=== PATIENT | male | born 1960 | race Caucasian/White ===

== ENCOUNTER → 2019-10-16 09:37 | Outpatient (BNVA) | payer MEDICARE, SELFPAY | PROVIDERS: Family Provider Family Medicine; PCP Family Medicine; Visit Provider Family Medicine | DX: E11.9 Type 2 diabetes mellitus without complications (principal); M54.9 Dorsalgia, unspecified; E78.5 Hyperlipidemia, unspecified; I10 Essential (primary) hypertension; M54.40 Lumbago with sciatica, unspecified side; Z79.4 Long term (current) use of insulin; G89.29 Other chronic pain | CPT/HCPCS: 80053; 80061; 83036 ==

== ENCOUNTER → 2020-01-23 11:02 | Outpatient (BNVA) | payer MEDICARE, SELFPAY | PROVIDERS: Family Provider Family Medicine; PCP Family Medicine; Visit Provider Family Medicine | DX: E11.9 Type 2 diabetes mellitus without complications (principal); M54.9 Dorsalgia, unspecified; E78.5 Hyperlipidemia, unspecified; I10 Essential (primary) hypertension; M54.40 Lumbago with sciatica, unspecified side; Z79.4 Long term (current) use of insulin; G89.29 Other chronic pain; R74.8 Abnormal levels of other serum enzymes; M89.8X1 Other specified disorders of bone, shoulder; M75.81 Other shoulder lesions, right shoulder | CPT/HCPCS: 80048; 83036 ==

== ENCOUNTER → 2020-04-22 11:04 | Outpatient (BNVA) | payer MEDICARE, SELFPAY | PROVIDERS: Family Provider Family Medicine; PCP Family Medicine; Visit Provider Family Medicine | DX: E11.9 Type 2 diabetes mellitus without complications (principal); I10 Essential (primary) hypertension; M89.8X1 Other specified disorders of bone, shoulder; M75.81 Other shoulder lesions, right shoulder; Z79.4 Long term (current) use of insulin; M54.42 Lumbago with sciatica, left side; M54.41 Lumbago with sciatica, right side; G89.29 Other chronic pain; N18.2 Chronic kidney disease, stage 2 (mild) | CPT/HCPCS: 80048; 83036 ==

== ENCOUNTER → 2020-07-23 00:01 | Outpatient (BNVA) | payer MEDICARE, SELFPAY | PROVIDERS: Family Provider Family Medicine; PCP Family Medicine; Visit Provider Family Medicine | DX: E11.9 Type 2 diabetes mellitus without complications (principal); E78.5 Hyperlipidemia, unspecified; M75.81 Other shoulder lesions, right shoulder; M89.8X1 Other specified disorders of bone, shoulder; I10 Essential (primary) hypertension; M54.40 Lumbago with sciatica, unspecified side; N18.2 Chronic kidney disease, stage 2 (mild); Z79.4 Long term (current) use of insulin; M54.42 Lumbago with sciatica, left side; M54.41 Lumbago with sciatica, right side; G89.29 Other chronic pain | CPT/HCPCS: 80048; 83036 ==

== ENCOUNTER → 2020-10-22 10:55 | Outpatient (BNVA) | payer MEDICARE, SELFPAY | PROVIDERS: Family Provider Family Medicine; PCP Family Medicine; Visit Provider Family Medicine | DX: E11.9 Type 2 diabetes mellitus without complications (principal); I10 Essential (primary) hypertension; E78.5 Hyperlipidemia, unspecified; N18.2 Chronic kidney disease, stage 2 (mild); Z72.0 Tobacco use; Z79.4 Long term (current) use of insulin | CPT/HCPCS: 80053; 80061; 83036 ==

== ENCOUNTER → 2021-02-11 09:40 | Outpatient (BNVA) | payer MEDICARE, SELFPAY | PROVIDERS: Family Provider Family Medicine; PCP Family Medicine; Visit Provider Family Medicine | DX: E11.9 Type 2 diabetes mellitus without complications (principal); Z79.4 Long term (current) use of insulin; I10 Essential (primary) hypertension; E78.5 Hyperlipidemia, unspecified; G89.29 Other chronic pain | CPT/HCPCS: 83036 ==

== ENCOUNTER 2021-04-14 13:45 | Emergency (ER) | payer OTHER, MEDICARE, SELFPAY ==
[2021-04-14 14:36] VITALS: BP 130/81; PULSE 93; RESP 16; TEMP 37; O2SAT 96; BMI 34.4
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
--- NOTE | 2021-04-15 09:14 | DCPLANNER ---
restaurant manager had message to schedule a follow up appointment with ortho for patient. restaurant manager called the ortho clinic, spoke with Helen, gave clinic patients information. restaurant manager was told that patients information would be printed and reviewed. Clinic will call patient with appointment information.
--- NOTE | 2021-04-16 11:25 | DCPLANNER ---
Patient has a follow up appointment scheduled for , April 17, 2021 at 11:00 with NIDHI Ngo. Clinic will call patient with appointment information.
--- NOTE | 2021-07-06 16:34 | DCPLANNER ---
Patient had a follow up appointment scheduled with ortho - patient did attend appointment.
== END 2021-04-14 18:52 | disposition home or self-care (01) ==
PROVIDERS: Emergency Provider Physician Assistant; PCP Family Medicine
DX: S62.366A Nondisplaced fracture of neck of fifth metacarpal bone, right hand, initial encounter for closed fracture (principal); E11.9 Type 2 diabetes mellitus without complications; N18.9 Chronic kidney disease, unspecified
CPT/HCPCS: 73130; 99282

== ENCOUNTER 2021-04-17 15:23 | Outpatient (CLI) | payer MEDICARE, SELFPAY | END 2021-04-17 15:24 | disposition home or self-care (01) | LOC: SPT 15:24 | PROVIDERS: PCP Family Medicine; Visit Provider Physician Assistant | DX: Z46.89 Encounter for fitting and adjustment of other specified devices (principal); S62.366A Nondisplaced fracture of neck of fifth metacarpal bone, right hand, initial encounter for closed fracture; X58.XXXA Exposure to other specified factors, initial encounter | CPT/HCPCS: 97760; L3984 ==

== ENCOUNTER → 2021-05-13 08:57 | Outpatient (BNVA) | payer MEDICARE, SELFPAY | PROVIDERS: PCP Family Medicine; Visit Provider Family Medicine | DX: E11.9 Type 2 diabetes mellitus without complications (principal); Z79.4 Long term (current) use of insulin; I10 Essential (primary) hypertension; E78.5 Hyperlipidemia, unspecified | CPT/HCPCS: 36416; 80053; 82962; 83036 ==

== ENCOUNTER → 2021-05-15 11:06 | Outpatient (BNVA) | payer OTHER, SELFPAY | PROVIDERS: PCP Family Medicine; Visit Provider Physician Assistant | DX: S62.366A Nondisplaced fracture of neck of fifth metacarpal bone, right hand, initial encounter for closed fracture (principal); X58.XXXA Exposure to other specified factors, initial encounter | CPT/HCPCS: 73120 ==

== ENCOUNTER → 2021-08-11 14:56 | Outpatient (BNVA) | payer MEDICARE, SELFPAY | PROVIDERS: PCP Family Medicine; Visit Provider Family Medicine | DX: E11.9 Type 2 diabetes mellitus without complications (principal); E78.5 Hyperlipidemia, unspecified; Z79.4 Long term (current) use of insulin; I10 Essential (primary) hypertension | CPT/HCPCS: 80053; 80061; 83036; 83721 ==

== ENCOUNTER 2022-02-15 11:14 | Emergency (ER) | payer MEDICARE, SELFPAY ==
[2022-02-15 11:46] VITALS: BP 133/86; PULSE 97; RESP 18; TEMP 36.6; O2SAT 96; BMI 33.6
--- NOTE | 2022-02-15 12:40 | PC.NURSE ---
Patient refused vitals
[2022-02-15 12:42] LABS: Basophils # 0.1 10^3/uL (0.0-0.1); Basophils % 0.3 %; Eosinophils # 0.1 10^3/uL (0.0-0.8); Eosinophils % 0.4 %; Hematocrit 43.8 % (42.0-52.0); Hemoglobin 14.3 g/dL (11.7-16.6); Lymphocytes # 2.4 10^3/uL (0.8-4.8); Lymphocytes % 11.5 %; Mean Corpuscular HGB Conc 32.6 g/dL (30.0-36.0); Mean Corpuscular Hemoglobin 30.9 pg (28.0-34.0); Mean Corpuscular Volume 94.6 fl (80-94); Mean Platelet Volume 10.7 fL (7.4-10.4); Monocytes # 1.8 10^3/uL (0.2-0.9); Monocytes % 8.8 %; Neutrophils # 16.37 10^3/uL (1.8-7.7); Neutrophils % 78.4 %; Nucleated Red Blood Cells % 0 %; Platelet Count 210 10^3/cmm (130-400); Red Blood Count 4.63 10^6/uL (4.1-5.3); Red Cell Distribution Width 12.3 % (12.1-15.1); White Blood Count 20.9 10^3/uL (4.0-10.0)
[2022-02-15 12:56] LABS: Erythrocyte Sedimentation Rate 6 mm/hr (0-10)
[2022-02-15 13:03] LABS: Alanine Aminotransferase 16 U/L (0-41); Albumin Level 4.4 g/dL (3.5-5.2); Alkaline Phosphatase 54 U/L (40-130); Anion Gap 15.4 (5-19); Aspartate Amino Transferase 12 U/L (0-40); Blood Urea Nitrogen 19 mg/dL (8-23); C Reactive Protein 62.6 mg/L (0.0-4.9); Calcium 9.7 mg/dL (8.5-10.5); Carbon Dioxide 26 mmol/L (22-29); Chloride 102 mmol/L (98-107); Globulin 2.4 g/dL (1.3-4.6); Glomerular Filtration Rate 51.2 mL/min (90-130); Glucose 157 mg/dL (65-115); Osmolality Calculated 294 mOsm/kg (285-295); Potassium 4.4 mmol/L (3.5-5.1); Sodium 139 mmol/L (136-145); Total Bilirubin 0.6 mg/dL (0.15-1.2); Total Protein 6.8 g/dL (6.6-8.7)
--- NOTE | 2022-02-15 14:36 | ED_ITS ---
HPI - Animal Bite General: Chief Complaint: Animal Bite Stated Complaint: Spider bite Time Seen by Provider: 02/15/22 14:35 History of Present Illness: 61-year-old gentleman with significant past medical history of diabetes who is up-to-date on tetanus who presents to the emergency department due to chest wall pain. He believes that he might of been bitten by a spider a few days ago however starting last night noticed increased burning pain and redness. Area is primarily located around a small black circular eschar. He does not recall specifically seeing the insect. There is some tenderness that radiates towards the shoulder. Has had chills but no other signs of systemic illness. Patient reports blood sugars in the 140s recently. No other specific changes in health, exacerbating, or alleviating factors identified. Onset (ago): day(s) Location: chest Pain description: constant Associated symptoms: Reports chills and erythema Review of Systems General: Reports: 10 or more systems reviewed and unremarkable except in HPI and below Const: Reports: chills PFSH ED PFSH: Medical History Chronic bilateral low back pain with sciatica Chronic pain of left wrist CKD (chronic kidney disease) Diabetes Dyslipidemia Enrolled in chronic care management Essential hypertension Tobacco use QUIT 2021 Surgical History H/O wrist surgery Total knee replacement status Family History Other Cancer Diabetes Epilepsy Heart disease Social History Smoking and tobacco status: former smoker Quit status (tobacco): has quit using tobacco Year quit tobacco: 04/2021 Alcohol intake: never Desire information about alcohol rehabilitation?: No Desire information about substance/drug rehabilitation?: No History of recent travel: No Current gender identity: Male Physical Exam Const: COMMON NORMALS: alert GENERAL APPEARANCE: cooperative and well developed HENMT: COMMON NORMALS: normocephalic and atraumatic HEAD & SCALP: normocephalic and atraumatic THROAT: posterior oropharynx normal Eye: COMMON NORMALS: conjunctivae normal CONJUNCTIVA: Yes conjunctivae normal SCLERA: sclerae normal Neck/C-Spine: COMMON NORMALS: supple GENERAL: Yes trachea midline Chest: OTHER: Erythema with foci just inferior and medial to the right nipple. Induration and tenderness palpation. Central area of black eschar which is approximately 3 mm in diameter. [id number] ultrasound performed with soft tissue induration without evidence of abscess or drainable fluid collection. Resp: COMMON NORMALS: normal respiratory effort EFFORT & INSPECTION: Yes able to speak in complete sentences Cardio: COMMON NORMALS: regular rate and regular rhythm RATE: regular rate RHYTHM: regular rhythm GI: COMMON NORMALS: Soft to palpation PALPATION: Yes Soft to palpation and No Tenderness to palpation present (GI) PERCUSSION: normal to percussion Extremity: GENERAL: Yes normal exam except as noted and No edema Neuro: COMMON NORMALS: moves all extremities SENSORIUM/ORIENTATION: Yes alert and No Orientation impaired Psych: COMMON NORMALS: mental status grossly normal and Normal thought process present THOUGHT PROCESS: Normal thought process present Skin: GENERAL SKIN EXAM: erythema Course Vital Signs: Vital signs: Vital Signs Temperature 98 F 02/15/22 11:46 Pulse Rate 88 02/15/22 15:29 Respiratory Rate 18 02/15/22 15:29 Blood Pressure 135/78 02/15/22 15:29 Pulse Oximetry 98 02/15/22 15:29 Oxygen Delivery Me thod 02/15/22 11:46 MDM - Animal Bite Medical Decision Making 61-year-old gentleman presenting with possible insect bite. Patient does have leukocytosis however is nontoxic in appearance. Labs otherwise similar to baseline. Satisfactory for outpatient management with antibiotics. Strict return precautions given. Medical Records I reviewed the patient's medical records. Lab Data I reviewed the patient's lab results. : 02/15/22 12:30 02/15/22 12:30 Laboratory Results WBC 20.9 10^3/uL (4.0-10.0) H 02/15/22 12:30 RBC 4.63 10^6/uL (4.1-5.3) 02/15/22 12:30 Hgb 14.3 g/dL (11.7-16.6) 02/15/22 12:30 Hct 43.8 % (42.0-52.0) 02/15/22 12:30 MCV 94.6 fl (80-94) H 02/15/22 12:30 MCH 30.9 pg (28.0-34.0) 02/15/22 12:30 MCHC 32.6 g/dL (30.0-36.0) 02/15/22 12:30 RDW 12.3 % (12.1-15.1) 02/15/22 12:30 Plt Count 210 10^3/cmm (130-400) 02/15/22 12:30 MPV 10.7 fL (7.4-10.4) H 02/15/22 12:30 Neut % (Auto) 78.4 % 02/15/22 12:30 Lymph % (Auto) 11.5 % 02/15/22 12:30 Grainger % (Auto) 8.8 % 02/15/22 12:30 Eos % (Auto) 0.4 % 02/15/22 12:30 Baso % (Auto) 0.3 % 02/15/22 12:30 Neut # (Auto) 16.37 10^3/uL (1.8-7.7) H 02/15/22 12:30 Lymph # (Auto) 2.4 10^3/uL (0.8-4.8) 02/15/22 12:30 Grainger # (Auto) 1.8 10^3/uL (0.2-0.9) H 02/15/22 12:30 Eos # (Auto) 0.1 10^3/uL (0.0-0.8) 02/15/22 12:30 Baso # (Auto) 0.1 10^3/uL (0.0-0.1) 02/15/22 12:30 Nucleated RBC % (auto) 0 % 02/15/22 12:30 Nucleated RBCs # 0.0 /100WBC 02/15/22 12:30 ESR 6 mm/hr (0-10) 02/15/22 12:30 Sodium 139 mmol/L (136-145) 02/15/22 12:30 Potassium 4.4 mmol/L (3.5-5.1) 02/15/22 12:30 Chloride 102 mmol/L (98-107) 02/15/22 12:30 Carbon Dioxide 26 mmol/L (22-29) 02/15/22 12:30 Anion Gap 15.4 (5-19) 02/15/22 12:30 BUN 19 mg/dL (8-23) 02/15/22 12:30 Creatinine 1.4 mg/dL (0.7-1.2) H 02/15/22 12:30 GFR Calculation 51.2 mL/min (90-130) L 02/15/22 12:30 Glucose 157 mg/dL (65-115) H 02/15/22 12:30 Calculated Osmolality 294 mOsm/kg (285-295) 02/15/22 12:30 Calcium 9.7 mg/dL (8.5-10.5) 02/15/22 12:30 Total Bilirubin 0.6 mg/dL (0.15-1.2) 02/15/22 12:30 AST 12 U/L (0-40) 02/15/22 12:30 ALT 16 U/L (0-41) 02/15/22 12:30 Alkaline Phosphatase 54 U/L (40-130) 02/15/22 12:30 C-Reactive Protein 62.6 mg/L (0.0-4.9) H 02/15/22 12:30 Total Protein 6.8 g/dL (6.6-8.7) 02/15/22 12:30 Albumin 4.4 g/dL (3.5-5.2) 02/15/22 12:30 Globulin 2.4 g/dL (1.3-4.6) 02/15/22 12:30 Discharge Plan Discharge Patient Disposition: Home Clinical Impression: Insect bite, Cellulitis Condition: Stable Prescriptions: New ondansetron 4 mg tablet,disintegrating 4 mg PO Q8H PRN (Reason: nausea and vomiting) Qty: 15 0RF No Action Lantus Solostar U-100 Insulin 100 unit/mL (3 mL) insulin pen 65 unit SUBCUT DAILY 30 Days Qty: 21 2RF tramadol 50 mg tablet 50 - 100 mg PO Q6H PRN omega-3 fatty acids [Fish Oil Concentrate] 1,000 mg capsule 1,000 mg PO BID 90 Days Qty: 180 3RF meloxicam 7.5 mg tablet See Rx Instructions .ROUTE .COMPLEX PRN (Reason: pain) Qty: 90 1RF Dose Instruction: TAKE 1 TABLET BY MOUTH EVERY DAY Rx Instructions: TAKE 1 TABLET BY MOUTH EVERY DAY PRN; WITH FOOD (DME) Fast Form Ulnar Gutter Splint See Rx Instructions .ROUTE .MEDSUPPLY Qty: 1 0RF Rx Instructions: As directed cyclobenzaprine 5 mg tablet 10 mg PO TID MDD 6 tabs PRN (Reason: muscle spasm) Qty: 30 1RF Rx Instructions: 1 or 2 tabs as needed lovastatin 20 mg tablet See Rx Instructions .ROUTE .COMPLEX 90 Days Qty: 90 3RF Dose Instruction: TAKE 1 TABLET BY MOUTH AT BEDTIME Rx Instructions: TAKE 1 TABLET BY MOUTH AT BEDTIME niacin 500 mg tablet extended release 24 hr See Rx Instructions .ROUTE .COMPLEX Qty: 90 3RF Dose Instruction: TAKE 1 TABLET BY MOUTH DAILY Rx Instructions: TAKE 1 TABLET BY MOUTH DAILY oxycodone 5 mg tablet 5 mg PO TID PRN (Reason: pain) 5 Days Qty: 15 0RF (DME) Truetest Test Strips Strip See Rx Instructions .ROUTE .MEDSUPPLY Qty: 50 0RF Rx Instructions: As directed: 1 strip BID lisinopril 10 mg tablet 10 mg PO DAILY 30 Days Qty: 30 0RF fenofibrate 160 mg tablet 160 mg PO .AT BEDTIME 30 Days Qty: 30 3RF metformin 1,000 mg tablet 1,000 mg PO BID 30 Days Qty: 60 2RF pen needle, diabetic [BD Ultra-Fine Laurie Pen Needle] 32 gauge x 5/32 needle See Rx Instructions .ROUTE .COMPLEX Qty: 100 0RF Dose Instruction: USE DIRECTED WITH LANTUS SOLOSTAR PEN DAILY Rx Instructions: USE DIRECTED WITH LANTUS SOLOSTAR PEN DAILY glipizide 10 mg tablet See Rx Instructions .ROUTE .COMPLEX Qty: 360 0RF Dose Instruction: TAKE 2 TABLETS BY MOUTH TWICE DAILY Rx Instructions: TAKE 2 TABLETS BY MOUTH TWICE DAILY Discharge Orders: Discharge ED (Routine); Ordered 02/15/22 Ordered By: Emory Eid Referrals: Lea Forbes MD [Primary Care Provider] - Discharge Diet: Usual diet Discharge Activity: Increase activity as tolerated Patient Instructions: Cellulitis (ED), Insect Bite or Sting (ED), Opioid Safety Activity Restrictions/Additional Instructions: Thank you for visiting the emergency department. You were seen and evaluated for generalized symptoms associated with possible insect bite or chest wall cellulitis. The exact cause of your symptoms is unclear though it does appear that there is some evidence of infection which will be treated with antibiotics. Additionally will prescribe pain control, do not combine the prescribed medication oxycodone with your tramadol as this can cause over sedation including respiratory depression and mental status depression. Please also use this cautiously and do not operate machinery or otherwise perform dangerous tasks as this medication can change mental status and reaction time. Common side effect includes constipation. Please follow-up with your primary care provider. Please keep the area clean and dry. You may also use Tylenol and ibuprofen however please be cautious with ibuprofen given your underlying kidney disease. Return to the emergency department for worsening symptoms, uncontrolled pain, or anything else that you are concerned about and feel needs emergency department evaluation. Coding Level of Care Code ED Boiling House Hand for Daryl Fwpeng Exam Comprehensive
[2022-02-15] MEDS: clindamycin 150 mg Capsule 300 MG PO (15:12)
[2022-02-15] MEDS: acetaminophen 500 mg Tablet 1000 MG PO (15:12)
[2022-02-15] MEDS: ketorolac 30 mg/mL INJ 15 MG IM (15:13)
[2022-02-15 15:29] VITALS: BP 135/78; PULSE 88; RESP 18; O2SAT 98
== END 2022-02-15 15:31 | disposition home or self-care (01) ==
PROVIDERS: Registered Nurse; Emergency Provider Emergency Medicine; PCP Family Medicine
DX: S20.361A Insect bite (nonvenomous) of right front wall of thorax, initial encounter (principal); L03.313 Cellulitis of chest wall; W57.XXXA Bitten or stung by nonvenomous insect and other nonvenomous arthropods, initial encounter; Z79.84 Long term (current) use of oral hypoglycemic drugs; Z79.4 Long term (current) use of insulin; E11.9 Type 2 diabetes mellitus without complications; E78.5 Hyperlipidemia, unspecified; I10 Essential (primary) hypertension; Z87.891 Personal history of nicotine dependence
CPT/HCPCS: 36415; 80053; 85025; 85651; 86140; 87040; 96372; 99284; J1885

== ENCOUNTER → 2022-02-19 11:03 | Outpatient (BNVA) | payer MEDICARE, SELFPAY | PROVIDERS: PCP Family Medicine; Visit Provider Family Medicine | DX: L03.313 Cellulitis of chest wall (principal) | CPT/HCPCS: 85025 ==

== ENCOUNTER → 2022-03-03 11:35 | Outpatient (BNVA) | payer MEDICARE, SELFPAY | PROVIDERS: PCP Family Medicine; Visit Provider Family Medicine | DX: L03.313 Cellulitis of chest wall (principal); E11.9 Type 2 diabetes mellitus without complications; Z79.4 Long term (current) use of insulin | CPT/HCPCS: 80053; 83036; 85025 ==

== ENCOUNTER → 2022-06-17 10:40 | Outpatient (BNVA) | payer MEDICARE, SELFPAY | PROVIDERS: PCP Family Medicine; Visit Provider Family Medicine | DX: E78.5 Hyperlipidemia, unspecified (principal); E11.9 Type 2 diabetes mellitus without complications; Z79.4 Long term (current) use of insulin | CPT/HCPCS: 80053; 80061; 83036; 83721 ==

== ENCOUNTER → 2022-10-01 11:19 | Outpatient (BNVA) | payer MEDICARE, SELFPAY | PROVIDERS: PCP Family Medicine; Visit Provider Family Medicine | DX: E11.9 Type 2 diabetes mellitus without complications (principal); Z79.4 Long term (current) use of insulin; I10 Essential (primary) hypertension | CPT/HCPCS: 80053; 83036 ==

== ENCOUNTER → 2023-03-30 10:31 | Outpatient (BNVA) | payer MEDICARE, SELFPAY | PROVIDERS: PCP Family Medicine; Visit Provider Family Medicine | DX: Z23 Encounter for immunization (principal); M89.8X1 Other specified disorders of bone, shoulder; M75.81 Other shoulder lesions, right shoulder; E11.9 Type 2 diabetes mellitus without complications; Z79.4 Long term (current) use of insulin; E78.5 Hyperlipidemia, unspecified; I10 Essential (primary) hypertension; M54.40 Lumbago with sciatica, unspecified side; Z12.5 Encounter for screening for malignant neoplasm of prostate; N18.2 Chronic kidney disease, stage 2 (mild); M54.42 Lumbago with sciatica, left side; M54.41 Lumbago with sciatica, right side; G89.29 Other chronic pain | CPT/HCPCS: 80048; 83036; G0103 ==

== ENCOUNTER → 2023-09-29 13:14 | Outpatient (BNVA) | payer MEDICARE, SELFPAY | PROVIDERS: PCP Family Medicine; Visit Provider Family Medicine | DX: E11.9 Type 2 diabetes mellitus without complications (principal); I10 Essential (primary) hypertension; E78.5 Hyperlipidemia, unspecified; Z79.4 Long term (current) use of insulin | CPT/HCPCS: 80048; 80061; 83721 ==

== ENCOUNTER → 2023-10-13 09:50 | Outpatient (BNVA) | payer MEDICARE, SELFPAY | PROVIDERS: PCP Family Medicine; Referring Provider Family Medicine; Visit Provider Family Medicine | DX: E11.9 Type 2 diabetes mellitus without complications (principal); I10 Essential (primary) hypertension; E78.5 Hyperlipidemia, unspecified | CPT/HCPCS: 83036 ==

== ENCOUNTER → 2024-03-28 13:38 | Outpatient (BNVA) | payer MEDICARE, SELFPAY | PROVIDERS: PCP Family Medicine; Visit Provider Family Medicine | DX: E11.9 Type 2 diabetes mellitus without complications (principal); Z79.4 Long term (current) use of insulin; Z12.5 Encounter for screening for malignant neoplasm of prostate | CPT/HCPCS: 80053; 83036; G0103 ==

== ENCOUNTER → 2024-05-04 12:37 | Outpatient (BNVA) | payer MEDICARE, SELFPAY | PROVIDERS: PCP Family Medicine; Referring Provider Family Medicine; Visit Provider Family Medicine | DX: N18.2 Chronic kidney disease, stage 2 (mild) (principal); E11.9 Type 2 diabetes mellitus without complications; Z79.4 Long term (current) use of insulin | CPT/HCPCS: 80048; 81003; 85025 ==

== ENCOUNTER 2024-05-21 10:38 | Emergency (ER) | payer MEDICARE, MEDICAID, SELFPAY ==
[2024-05-21 11:38] VITALS: BP 125/79; PULSE 93; RESP 18; TEMP 36.7; O2SAT 96; BMI 30.5
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
--- NOTE | 2024-05-21 12:11 | ED_ITS ---
HPI - Extremity Problem 2 General: Chief complaint: Extremity Problem,Nontraumatic Stated complaint: lft hand pain Time Seen by Provider: 05/21/24 12:00 Source: patient Mode of arrival: ambulatory Limitations: no limitations History of Present Illness: 63-year-old male states that he is up he r friend pull well with a rope a week ago he said since then he has been having pain in his left hand and wrist. Said a history of arthritis states it is worse with palpation movement. He denies any fever no redness. Rates his pain currently 5 out of 10 Associated symptoms: Deny chest pain, fever(s) or rash Related Data Home Medications Medication Instructions Recorded Confirmed lovastatin 20 mg tablet 20 mg PO QPM 05/21/24 05/21/24 meloxicam 7.5 mg tablet 7.5 mg PO DAILY PRN pain 05/21/24 05/21/24 metformin 1,000 mg tablet 1,000 mg PO BID 05/21/24 05/21/24 niacin 500 mg tablet,extended 500 mg PO DAILY 05/21/24 05/21/24 release 24 hr Previous Rx's Medication Instructions Recorded Fast Form Ulnar Gutter Splint #1 ea 04/17/21 blood-glucose meter (True Metrix #1 ea 04/14/23 Glucose Meter) blood sugar diagnostic (OneTouch #100 ea 07/05/23 Ultra Test strips) cyclobenzaprine 5 mg tablet 10 mg (2 x 5 mg) PO TID PRN muscle 03/28/24 spasm #90 tabs empagliflozin 10 mg tablet 10 mg PO QAM 90 days #90 tabs 03/28/24 (Jardiance) fenofibrate 160 mg tablet 160 mg PO .AT BEDTIME 30 days #90 24 tabs glipizide 10 mg tablet 10 mg PO BID 90 days #180 tabs 03/28/24 insulin glargine 100 unit/mL (3 35 unit (0.35 mL) SUBCUT DAILY 90 03/28/24 mL) subcutaneous pen (Lant days #45 mL Solostar U-100 Insulin) lisinopril 20 mg tablet 20 mg PO DAILY 90 days #90 tabs 03/28/24 omega-3 fatty acids 1,000 mg 1,000 mg PO BID 90 days #180 caps 03/28/24 capsule cephalexin 500 mg capsule 500 mg PO TID 7 days #21 caps 05/21/24 naproxen 500 mg tablet (Naprosyn) 500 mg PO BID PRN pain #20 tabs 05/21/24 prednisone 50 mg tablet 50 mg PO DAILY #5 tabs 05/21/24 Allergies Allergy/AdvReac Type Severity Reaction Status Date / Time No Known Allergies Allergy Verified 03/28/24 12:36 Review of Systems 2 Const: Denies: fever(s), chills, body aches or change in appetite ENMT: Denies: throat pain or dental pain Card: Denies: chest pain Resp: Denies: dyspnea GI: Denies: abdominal pain, nausea, vomiting or diarrhea Musc: Reports: extremity pain; Denies: neck pain or back pain Skin/Breast: Denies: rash Neuro: Denies: headache(s) PFSH ED 2 PFSH: Medical History Tobacco use QUIT 2021 Enrolled in chronic care management CKD (chronic kidney disease) Dyslipidemia Diabetes Essential hypertension Chronic bilateral low back pain with sciatica Chronic pain of left wrist Surgical History H/O wrist surgery Total knee replacement status Family History Other Cancer Diabetes Epilepsy Heart disease Social History Smoking and tobacco/nicotine status: unknown if used tobacco/nicotine Quit status (tobacco/nicotine): has quit using Year quit tobacco: 04/2021 Alcohol intake: never Substance/Drug Use: never Current gender identity: Male Physical Exam 2 Const: COMMON NORMALS: no acute distress, patient oriented x3 and healthy appearing HENMT: COMMON NORMALS: normocephalic and atraumatic HEAD & SCALP: n ormocephalic and atraumatic Eye: COMMON NORMALS: conjunctivae normal CONJUNCTIVA: Yes conjunctivae normal Neck/C-Spine: COMMON NORMALS: full ROM and supple Chest: COMMONS NORMALS: normal inspection of the chest Resp: COMMON NORMALS: normal respiratory effort Cardio: COMMON NORMALS: regular rate RATE: regular rate Extremity: COMMON NORMALS: normal to inspection and full ROM NARRATIVE EXTREMITY EXAM: Tenderness along the left wrist pain with range of motion no obvious deformity no warmth to touch Neuro: COMMON NORMALS: patient oriented x3, moves all extremities and no focal motor deficits Psych: COMMON NORMALS: mental status grossly normal, Normal thought process present and cooperative THOUGHT PROCESS: Normal thought process present Skin: COMMON NORMALS: no rashes or lesions noted and no wounds GENERAL SKIN EXAM: no rashes or lesions noted Course 2 Vital Signs: Vital signs: Vital Signs Temperature 98.1 F 05/21/24 11:38 Pulse Rate 93 05/21/24 11:38 Respiratory Rate 18 05/21/24 11:38 Blood Pressure 125/79 05/21/24 11:38 Pulse Oximetry 96 05/21/24 11:38 Oxygen Delivery Me thod Room Air 05/21/24 11:38 MDM - Extremity (Nontraumatic) Medical Decision Making Patient presents with left wrist pain likely arthritis or gout no signs of septic joint we will start antibiotics steroids along with anti-inflammatory patient is to follow-up PCP return if worsening patient understands agrees to plan. Medical Records I reviewed the patient's medical records. Lab Data I reviewed the patient's lab results. 05/21/24 13:23 Radiology Impressions Hand X-Ray 05/21/24 11:47 IMPRESSION: 1. No acute fracture of the left hand. Followup radiographs recommended in 7-14 days if clinical concern for fracture persists. 2. Small radiopaque foci in the volar aspect of the proximal left 2nd finger in the volar aspect of the mid left 4th finger, possible foreign bodies cannot be ruled out. Recommend clinical correlation. Diffuse, mild soft tissue swelling of the left wrist and hand. 3. Incidental/nonacute findings are listed in the report. Laboratory Results WBC 13.28 10^3/uL (3.29-11.43) H 05/21/24 13:23 RBC 4.91 10^6/uL (3.85-5.65) 05/21/24 13:23 Hgb 15.40 g/dL (11.27-16.99) 05/21/24 13:23 Hct 46.2 % (37-53) 05/21/24 13:23 MCV 94.1 fl (82-101) 05/21/24 13:23 MCH 31.4 pg (27-33) 05/21/24 13:23 MCHC 33.3 g/dL (30-55) 05/21/24 13:23 RDW 12.2 % (12.1-15.1) 05/21/24 13:23 Plt Count 234 10^3/cmm (157-399) 05/21/24 13:23 MPV 9.7 fL (7.4-10.4) 05/21/24 13:23 Neut % (Auto) 67.3 % 05/21/24 13:23 Lymph % (Auto) 20.9 % 05/21/24 13:23 [place] % (Auto) 9.9 % 05/21/24 13:23 Eos % (Auto) 1.1 % 05/21/24 13:23 Baso % (Auto) 0.3 % 05/21/24 13:23 Neut # (Auto) 8.95 10^3/uL (1.8-7.7) H 05/21/24 13:23 Lymph # (Auto) 2.8 10^3/uL (0.8-4.8) 05/21/24 13:23 [place] # (Auto) 1.3 10^3/uL (0.2-0.9) H 05/21/24 13:23 Eos # (Auto) 0.2 10^3/uL (0.0-0.8) 05/21/24 13:23 Baso # (Auto) 0.0 10^3/uL (0.0-0.1) 05/21/24 13:23 Nucleated RBC % (auto) 0 % 05/21/24 13:23 Nucleated RBCs # 0.0 /100WBC 05/21/24 13:23 C-Reactive Protein 55.1 mg/L (0.0-4.9) H 05/21/24 13:23 All radiology interpretation(s) finalized by discharge Discharge Plan Discharge Patient Disposition: Home Clinical Impression: Left wrist pain Condition: Stable Prescriptions: New cephalexin 500 mg capsule 500 mg PO TID 7 Days Qty: 21 0RF prednisone 50 mg tablet 50 mg PO DAILY Qty: 5 0RF naproxen [Naprosyn] 500 mg tablet 500 mg PO BID PRN (Reason: pain) Qty: 20 0RF No Action (DME) Fast Form Ulnar Gutter Splint See Rx Instructions .ROUTE .MEDSUPPLY Qty: 1 0RF Rx Instructions: As directed cyclobenzaprine 5 mg tablet 10 mg PO TID MDD 6 tabs PRN (Reason: muscle spasm) Qty: 90 2RF Rx Instructions: 1 or 2 tabs as needed Jardiance 10 mg tablet 10 mg PO QAM 90 Days Qty: 90 2RF fenofibrate 160 mg tablet 160 mg PO .AT BEDTIME 30 Days Qty: 90 2RF glipizide 10 mg tablet 10 mg PO BID 90 Days Qty: 180 2RF Lantus Solostar U-100 Insulin 100 unit/mL (3 mL) insulin pen 35 unit SUBCUT DAILY 90 Days Qty: 45 2RF lisinopril 20 mg tablet 20 mg PO DAILY 90 Days Qty: 90 2RF omega-3 fatty acids 1,000 mg capsule 1,000 mg PO BID 90 Days Qty: 180 3RF (DME) blood-glucose meter [True Metrix Glucose Meter] Misc See Rx Instructions .Route Qty: 1 0RF Rx Instructions: Use to test blood sugar twice daily (DME) OneTouch Ultra Test Strip See Rx Instructions .Route Qty: 100 11RF Rx Instructions: To test blood sugar twice daily niacin 500 mg tablet extended release 24 hr 500 mg PO DAILY meloxicam 7.5 mg tablet 7.5 mg PO DAILY PRN (Reason: pain) metformin 1,000 mg tablet 1,000 mg PO BID lovastatin 20 mg tablet 20 mg PO QPM Discharge Orders: Discharge ED (Routine); Ordered 05/21/24 Ordered By: Jorge Thao Referrals: Lea Forbes MD [Primary Care Provider] - 4-7 days Discharge Diet: Advance as tolerated Discharge Activity: Resume usual activity Patient Instructions: Arthralgia (ED) Coding Level of Care Code ED [employer] for Daryl Baldwin
[2024-05-21] MEDS: ketorolac 60 mg/2 mL INJ IM (13:18)
[2024-05-21] MEDS: dexamethasone 10 mg/mL INJ IM (13:20)
[2024-05-21 13:29] LABS: Basophils % 0.3 %; Eosinophils # 0.2 10^3/uL (0.0-0.8); Eosinophils % 1.1 %; Hematocrit 46.2 % (37-53); Lymphocytes # 2.8 10^3/uL (0.8-4.8); Lymphocytes % 20.9 %; Mean Corpuscular HGB Conc 33.3 g/dL (30-55); Mean Corpuscular Hemoglobin 31.4 pg (27-33); Mean Corpuscular Volume 94.1 fl (82-101); Mean Platelet Volume 9.7 fL (7.4-10.4); Monocytes # 1.3 10^3/uL (0.2-0.9); Monocytes % 9.9 %; Neutrophils # 8.95 10^3/uL (1.8-7.7); Neutrophils % 67.3 %; Nucleated Red Blood Cells % 0 %; Platelet Count 234 10^3/cmm (157-399); Red Blood Count 4.91 10^6/uL (3.85-5.65); Red Cell Distribution Width 12.2 % (12.1-15.1); White Blood Count 13.28 10^3/uL (3.29-11.43)
[2024-05-21 13:46] LABS: C Reactive Protein 55.1 mg/L (0.0-4.9)
[2024-05-21] MEDS: cefTRIAXone 1,000 MG in water for injection-sterile 2.1 ML 2.1 MG IM (14:12)
[2024-05-21 14:17] VITALS: BP 124/71; PULSE 88; O2SAT 96
== END 2024-05-21 14:19 | disposition home or self-care (01) ==
PROVIDERS: Emergency Provider Emergency Medicine; PCP Family Medicine
DX: M25.532 Pain in left wrist (principal); Z79.84 Long term (current) use of oral hypoglycemic drugs; Z87.891 Personal history of nicotine dependence; E11.22 Type 2 diabetes mellitus with diabetic chronic kidney disease; I12.9 Hypertensive chronic kidney disease with stage 1 through stage 4 chronic kidney disease, or unspecified chronic kidney disease; N18.9 Chronic kidney disease, unspecified; E78.5 Hyperlipidemia, unspecified
CPT/HCPCS: 73130; 85025; 86140; 96372; 99284; J0696; J1100; J1885

== ENCOUNTER → 2024-05-26 09:26 | Outpatient (BNVA) | payer MEDICARE, MEDICAID, SELFPAY | PROVIDERS: PCP Family Medicine; Referring Provider Internal Medicine; Visit Provider Family Medicine | DX: N18.2 Chronic kidney disease, stage 2 (mild) (principal) | CPT/HCPCS: 80069; 82043; 82310; 83970; 85007; 85027 ==

== ENCOUNTER → 2024-05-31 12:49 | Outpatient (BNVA) | payer MEDICARE, MEDICAID, SELFPAY | PROVIDERS: PCP Family Medicine; Referring Provider Family Medicine; Visit Provider Family Medicine | DX: D72.828 Other elevated white blood cell count (principal) | CPT/HCPCS: 81000 ==

== ENCOUNTER → 2024-06-15 11:28 | Outpatient (BNVA) | payer MEDICARE, MEDICAID, SELFPAY | PROVIDERS: PCP Family Medicine; Visit Provider Family Medicine | DX: M25.40 Effusion, unspecified joint (principal); D72.829 Elevated white blood cell count, unspecified; M10.9 Gout, unspecified | CPT/HCPCS: 84550; 85007; 85027; 85651; 86038; 86140 ==

== ENCOUNTER → 2024-06-16 16:53 | Outpatient (BNVA) | payer MEDICARE, MEDICAID, SELFPAY | PROVIDERS: PCP Family Medicine; Visit Provider Family Medicine | DX: D72.829 Elevated white blood cell count, unspecified | CPT/HCPCS: 80503 ==

== ENCOUNTER → 2024-07-19 13:05 | Outpatient (BNVA) | payer MEDICARE, MEDICAID, SELFPAY | PROVIDERS: PCP Family Medicine; Visit Provider Family Medicine | DX: M79.641 Pain in right hand (principal) | CPT/HCPCS: 73130 ==

== ENCOUNTER → 2024-09-08 09:50 | Outpatient (BNVA) | payer MEDICARE, MEDICAID, SELFPAY | PROVIDERS: PCP Family Medicine; Referring Provider Family Medicine; Visit Provider Family Medicine | DX: N18.2 Chronic kidney disease, stage 2 (mild) (principal); N18.32 Chronic kidney disease, stage 3b | CPT/HCPCS: 80069; 82043; 82306; 82310; 83970; 85025 ==

== ENCOUNTER → 2024-09-25 14:54 | Outpatient (BNVA) | payer MEDICARE, MEDICAID, SELFPAY | PROVIDERS: PCP Family Medicine; Visit Provider Family Medicine | DX: E11.9 Type 2 diabetes mellitus without complications (principal); Z79.4 Long term (current) use of insulin | CPT/HCPCS: 80061; 83036 ==

== ENCOUNTER → 2025-01-22 14:20 | Outpatient (BNVA) | payer MEDICARE, MEDICAID, SELFPAY | PROVIDERS: PCP Family Medicine; Visit Provider Family Medicine | DX: E11.9 Type 2 diabetes mellitus without complications (principal); N18.2 Chronic kidney disease, stage 2 (mild); Z79.4 Long term (current) use of insulin; E55.9 Vitamin D deficiency, unspecified | CPT/HCPCS: 80069; 82043; 82306; 82310; 83036; 83970; 85025 ==

== ENCOUNTER → 2025-02-14 13:47 | Outpatient (BNVA) | payer MEDICARE, MEDICAID, SELFPAY | PROVIDERS: PCP Family Medicine; Visit Provider Family Medicine | DX: N18.2 Chronic kidney disease, stage 2 (mild) (principal) | CPT/HCPCS: 80048 ==

== ENCOUNTER → 2025-05-28 15:04 | Outpatient (BNVA) | payer MEDICARE, MEDICAID, SELFPAY | PROVIDERS: PCP Family Medicine; Visit Provider Family Medicine | DX: E11.22 Type 2 diabetes mellitus with diabetic chronic kidney disease (principal); N18.2 Chronic kidney disease, stage 2 (mild); Z79.4 Long term (current) use of insulin | CPT/HCPCS: 80048; 83036 ==